=== PATIENT | female | born 1950 | race Caucasian/White ===

== ENCOUNTER 2022-05-16 04:32 | Day surgery (SDC) | payer OTHER ==
[2022-05-12 16:03] VITALS: BMI 23.6
[2022-05-16 10:13] VITALS: TEMP 98.6
[2022-05-16 10:56] VITALS: BP 134/57; PULSE 66; RESP 18
== END 2022-05-16 11:05 | disposition home or self-care (01) ==
LOC: JASU-ENDO 04:32
PROVIDERS: ATTEND Internal Medicine Gastroenterology
PROC: 0DJD8ZZ Inspection of Lower Intestinal Tract, Via Natural or Artificial Opening Endoscopic (ICD-10-PCS; principal; 2022-05-16 09:30)
DX: Z12.11 Encounter for screening for malignant neoplasm of colon (principal); K57.30 Diverticulosis of large intestine without perforation or abscess without bleeding; K64.8 Other hemorrhoids; K63.89 Other specified diseases of intestine; Z86.010 Personal history of colon polyps

== ENCOUNTER 2024-07-28 04:03 | Day surgery (SDC) | payer OTHER ==
[2024-07-25 09:32] VITALS: BMI 21.9
[2024-07-28] MEDS ORDERED: MIDAZOLAM HCL 2 MG/2 ML SINGLE DOSE VIAL ONE (11:21)
[2024-07-28 12:17] VITALS: RESP 16; TEMP 97.7
[2024-07-28 14:20] VITALS: BP 110/60; PULSE 66
== END 2024-07-28 14:21 | disposition home or self-care (01) ==
LOC: JASU-SURG 04:03
PROVIDERS: ATTEND Urology
PROC: 0TF3XZZ Fragmentation in Right Kidney Pelvis, External Approach (ICD-10-PCS; principal; 2024-07-28 11:30)
DX: N20.0 Calculus of kidney (principal)